=== PATIENT | male | born 1955 | race Caucasian/White ===

== ENCOUNTER → 2020-04-12 14:27 | Outpatient (BNVA) | payer OTHER, SELFPAY | PROVIDERS: PCP Internal Medicine; Visit Provider Emergency Medicine | DX: Z20.828 Contact with and (suspected) exposure to other viral communicable diseases (principal) | CPT/HCPCS: 87635 ==

== ENCOUNTER 2023-12-10 20:17 | Emergency (ER) | payer OTHER, SELFPAY ==
[2023-12-10] VITALS (7 sets, daily range): BP systolic 87–102; BP diastolic 56–67; PULSE 57–76; RESP 17; TEMP 37.7; O2SAT 88–95; BMI 26.9
--- NOTE | 2023-12-10 21:06 | XRR_ITS ---
PROCEDURE INFORMATION: Exam: XR Chest Exam date and time: 12/10/2023 9:29 PM Age: 68 years old Clinical indication: Patient HX: Fever of unknown origin; Hypotension TECHNIQUE: Imaging protocol: Radiologic exam of the chest. Views: 1 view. COMPARISON: No relevant prior studies available. FINDINGS: Lungs: The lungs are clear. No pulmonary consolidation. Pleural spaces: No pleural effusion or pneumothorax. Heart/Mediastinum: Small retrocardiac opacity with central lucency consistent with small hiatal hernia. Heart size is within normal limits. Bones/joints: No acute osseous abnormalities are seen. XR/XR chest 1V portable [id number] IMPRESSION: No acute cardiopulmonary disease.
--- NOTE | 2023-12-10 21:22 | ED_ITS ---
HPI - Fever 2 General: Chief Complaint: Fever Stated Complaint: fever low bp dizzy Time Seen by Provider: 12/10/23 20:46 History of Present Illness: Presents to the ER after 3 days of fever fatigue body aches and dizziness. Patient is also had some diarrhea. Patient's feels the same exact way. Patient has not been able to have a lot of oral intake. Patient did take some ibuprofen which did help his fever. Patient not get sick very often. Patient denies any overt abdominal pain other than body aches. Review of Systems 2 General: Reports: 10 or more systems reviewed and unremarkable except in HPI and below PFSH ED 2 PFSH: Family History Family/Other Hypertension Denies family history of Diabetes Dementia Social History Smoking and tobacco/nicotine status: never used tobacco/nicotine Alcohol intake: never Substance/Drug Use: never Adopted: No Physical Exam 2 Const: COMMON NORMALS: no acute distress, average body habitus, patient oriented x3, no limitations, healthy appearing, alert and well nourished HENMT: COMMON NORMALS: normocephalic, atraumatic, hearing grossly normal bilaterally, external ears normal, Normal external nose present and moist oral mucous membranes HEAD & SCALP: normocephalic and atraumatic NOSE: Normal external nose present EXTERNAL EAR: Yes external ears normal Neck/C-Spine: COMMON NORMALS: no JVD Chest: COMMONS NORMALS: normal inspection of the chest and normal palpation of entire chest wall Resp: COMMON NORMALS: normal respiratory effort, No retractions, No use of accessory muscles and clear to auscultation bilaterally AUSCULTATION: clear to auscultation bilaterally Cardio: COMMON NORMALS: no JVD, regular rate, regular rhythm, S1 normal heart sound present, S2 normal heart sound present, No gallops present (Cardio), No clicks present (Cardio), No murmurs present (Cardio) and No rub (Cardio) R ATE: regular rate RHYTHM: regular rhythm HEART SOUNDS: S1 normal heart sound present and S2 normal heart sound present GI: COMMON NORMALS: Normal to inspection, nondistended, normoactive bowel sounds present, Soft to palpation, non-tender, No hepatosplenomegaly present and no masses PALPATION: Yes Soft to palpation and Yes No hepatosplenomegaly present Neuro: COMMON NORMALS: patient oriented x3 SENSORIUM/ORIENTATION: Yes alert Course 2 Vital Signs: Vital signs: Vital Signs Temperature 99.8 F H 12/10/23 20:26 Pulse Rate 56 L 12/11/23 01:30 Respiratory Rate 17 12/10/23 20:26 Blood Pressure 93/53 12/11/23 01:30 Pulse Oximetry 91 12/11/23 01:30 Oxygen Delivery Me thod Room Air 12/11/23 01:00 MDM - Fever Medical Decision Making Patient was brought in for fever chills nausea vomiting diarrhea. Patient had lab work done there revealed is mildly elevated white count 11.78, mildly elevated creatinine of 1.4, UA that showed possible urinary tract infection. Patient's temperature is 99.8. He was given 1 g of Tylenol, Cipro 500 mg, and bolused 2 L normal saline, given 4 mg Zofran, patient was feeling better patient be discharged home with a prescription of Cipro and Zofran sent to his pharmacy Medical Records I reviewed the patient's medical records. Lab Data I reviewed the patient's lab results. 12/10/23 21:28 12/10/23 21: Radiology Impressions Chest X-Ray 12/10/23 21:06 IMPRESSION: No acute cardiopulmonary disease. Laboratory Results WBC 11.78 10^3/uL (3.29-11.43) H 12/10/23: RBC 4.66 10^6/uL (3.85-5.65) 12/10/23: Hgb 14.80 g/dL (11.27-16.99) 12/10/23: Hct 42.2 % (37-53) 12/10/23: MCV 90.6 fl (82-101) 12/10/23: MCH 31.8 pg (27-33) 12/10/23 21: MCHC 35.1 g/dL (30-55) 12/10/23 21: RDW 11.7 % (12.1-15.1) L 12/10/23 21: Plt Count 240 10^3/cmm (157-399) 12/10/23: MPV 8.8 fL (7.4-10.4) 12/10/23 21: Neut % (Auto) 76.8 % 12/10/23 21: Lymph % (Auto) 13.3 % 12/10/23: [place] % (Auto) 8.7 % 12/10/23 21: Eos % (Auto) 0.6 % 12/10/23: Baso % (Auto) 0.3 % 12/10/23: Neut # (Auto) 9.05 10^3/uL (1.8-7.7) H 12/10/23: Lymph # (Auto) 1.6 10^3/uL (0.8-4.8) 12/10/23: [place] # (Auto) 1.0 10^3/uL (0.2-0.9) H 12/10/23: Eos # (Auto) 0.1 10^3/uL (0.0-0.8) 12/10/23: Baso # (Auto) 0.0 10^3/uL (0.0-0.1) 12/10/23: Nucleated RBC % (auto) 0 % 12/10/23: Nucleated RBCs # 0.0 /100WBC 12/10/23: Sodium 135 mmol/L (136-145) L 12/10/23: Potassium 3.8 mmol/L (3.5-5.1) 12/10/23: Chloride 101 mmol/L (98-107) 12/10/23: Carbon Dioxide 21 mmol/L (22-29) L 12/10/23: Anion Gap 16.8 (5-19) 12/10/23: BUN 23 mg/dL (8-23) 12/10/23: Creatinine 1.4 mg/dL (0.7-1.2) H 12/10/23: GFR Calculation 50.2 mL/min (90-130) L 12/10/23: Glucose 165 mg/dL (65-115) H 12/10/23: Calculated Osmolality 287 mOsm/kg (285-295) 12/10/23: Lactic Acid 1.4 mmol/L (0.5-2.2) 12/10/23 21: Calcium 8.5 mg/dL (8.5-10.5) 12/10/23: Magnesium 2.0 mg/dL (1.7-2.3) 12/10/23 21: Total Bilirubin 0.6 mg/dL (0.15-1.2) 12/10/23 21: AST 13 U/L (0-40) 12/10/23: ALT 10 U/L (0-41) 12/10/23 21: Alkaline Phosphatase 67 U/L (40-130) 12/10/23 21: Total Protein 7.7 g/dL (6.6-8.7) 12/10/23: Albumin 3.7 g/dL (3.5-5.2) 12/10/23: Globulin 4.0 g/dL (1.3-4.6) 12/10/23: Urine Color Yellow (Yellow) 12/10/23 22:54 Urine Appearance Cloudy (CLEAR) A 12/10/23 22:54 Urine pH 5 (5-7) 12/10/23 22:54 Ur Specific [place] 1.025 (1.005-1.030) 12/10/23 22:54 Urine Protein 1+ (Negative) H 12/10/23 22:54 Urine Glucose (UA) Norm (Normal) 12/10/23 22:54 Urine Ketones 1+ (Negative) H 12/10/23 22:54 Urine Blood 3+ (Negative) H 12/10/23 22:54 Urine Nitrate Negative (Negative) 12/10/23 22:54 Urine Bilirubin 1+ (Negative) H 12/10/23 22:54 Urine Urobilinogen 4 mg/dL (Negative) H 12/10/23 22:54 Ur Leukocyte Esterase Trace (Negative) H 12/10/23 22:54 Urine RBC 5-10 /hpf (0-2) H 12/10/23 22:54 Urine WBC 5-10 /hpf (0-5) H 12/10/23 22:54 Ur Squamous Epith Cells 0-4 /hpf (0-5) H 12/10/23 22:54 Amorphous Sediment 1+ /hpf 12/10/23 22:54 Urine Bacteria 1+ /hpf (NONE) H 12/10/23 22:54 Hyaline Casts 5-10 /lpf H 12/10/23 22:54 Coarse Granular Casts 0-4 /lpf H 12/10/23 22:54 Urine Mucus 2+ /hpf 12/10/23 22:54 Influenza Type A Ag negative (Negative) 12/10/23 22:08 Influenza Type B Ag negative (Negative) 12/10/23 22:08 SARS-CoV-2 Ag (Rapid) negative (Negative) 12/10/23 22:08 All radiology interpretation(s) finalized by discharge Discharge Plan Discharge Patient Disposition: Home Clinical Impression: Gastroenteritis Urinary tract infection Qualifiers: Urinary tract infection type: acute cystitis Hematuria presence: with hematuria Qualified Code(s): N30.01 - Acute cystitis with hematuria Condition: Stable Prescriptions: New ondansetron HCl 4 mg tablet 4 mg PO Q8H PRN (Reason: nausea and vomiting) Qty: 14 0RF ciprofloxacin HCl 500 mg tablet 500 mg PO Q12H Qty: 20 0RF No Action lisinopril 10 mg tablet 10 mg PO DAILY Discharge Orders: Discharge ED (Routine); Ordered 12/11/23 Ordered By: Tigre Carlos Referrals: Dru Romero MD [Primary Care Provider] - 1 week Patient Instructions: Urinary Tract Infection in Men (ED), Gastroenteritis (ED) Activity Restrictions/Additional Instructions: Please take all your medicine as directed. Please push plenty of clear fluids. Follow-up with your family practice physician within the next 7 to 10 days for further evaluation and treatment as needed. Thank you for choosing [facility] for your healthcare needs today. Please realize that you were seen in the emergency department and that we are providing you with an emergency medical screening exam and this may not be a complete and all exclusive of all testing and/or medical workup we may need to determine your element or severity of your illness. It is very important that you follow-up as instructed with your primary care provider or specialist for the additional evaluation and to discuss your medical treatment plan. You may return to the emergency department should you have concerns or if your condition changes or worsens in any way. Coding Level of Care Code ED Assistant Production Manager for Shanna Espinoza
[2023-12-10 21:45] LABS: Basophils % 0.3 %; Eosinophils # 0.1 10^3/uL (0.0-0.8); Eosinophils % 0.6 %; Hematocrit 42.2 % (37-53); Lymphocytes # 1.6 10^3/uL (0.8-4.8); Lymphocytes % 13.3 %; Mean Corpuscular HGB Conc 35.1 g/dL (30-55); Mean Corpuscular Hemoglobin 31.8 pg (27-33); Mean Corpuscular Volume 90.6 fl (82-101); Mean Platelet Volume 8.8 fL (7.4-10.4); Monocytes % 8.7 %; Neutrophils # 9.05 10^3/uL (1.8-7.7); Neutrophils % 76.8 %; Nucleated Red Blood Cells % 0 %; Platelet Count 240 10^3/cmm (157-399); Red Blood Count 4.66 10^6/uL (3.85-5.65); Red Cell Distribution Width 11.7 % (12.1-15.1); White Blood Count 11.78 10^3/uL (3.29-11.43)
[2023-12-10] MEDS: ondansetron 2 mg/ML SDV 2 mL 4 MG IVP (22:00)
[2023-12-10] MEDS: acetaminophen 500 mg Tablet 1000 MG PO (22:00)
[2023-12-10] MEDS: sodium chloride 0.9% 1,000 ML 999 ML IV ×2 (22:01→23:40)
[2023-12-10 22:02] LABS: Alanine Aminotransferase 10 U/L (0-41); Albumin Level 3.7 g/dL (3.5-5.2); Alkaline Phosphatase 67 U/L (40-130); Anion Gap 16.8 (5-19); Aspartate Amino Transferase 13 U/L (0-40); Blood Urea Nitrogen 23 mg/dL (8-23); Calcium 8.5 mg/dL (8.5-10.5); Carbon Dioxide 21 mmol/L (22-29); Chloride 101 mmol/L (98-107); Creatinine Clr Calc Pharmacy 61.5767; Glomerular Filtration Rate 50.2 mL/min (90-130); Glucose 165 mg/dL (65-115); Osmolality Calculated 287 mOsm/kg (285-295); Potassium 3.8 mmol/L (3.5-5.1); Sodium 135 mmol/L (136-145); Total Bilirubin 0.6 mg/dL (0.15-1.2); Total Protein 7.7 g/dL (6.6-8.7)
[2023-12-10 22:34] LABS: Influenza A by IFA negative (Negative); Influenza B by IFA negative (Negative); SARS Covid-2 Antigen negative (Negative)
[2023-12-10 23:17] LABS: Add Urine Microscopic? YES; Bilirubin Urine 1+ (Negative); Blood Urine 3+ (Negative); Glucose Urine UA Norm (Normal); Ketones Urine 1+ (Negative); Leukocyte Esterase Urine Trace (Negative); Nitrate Urine Negative (Negative); Protein Urine 1+ (Negative); Specific Gravity, Urine 1.025 (1.005-1.030); Urine Appearance Cloudy (CLEAR); Urine Color Yellow (Yellow); Urobilinogen Urine 4 mg/dL (Negative); pH Urine 5 (5-7)
[2023-12-10 23:18] LABS: Add Urine Culture? Yes; Amorphous Sediment Urine 1+ /hpf; Bacteria Urine 1+ /hpf; Coarse Granular Casts Urine 0-4 /lpf; Mucus Urine 2+ /hpf; Squamous Epithelial Cell Urine 0-4 /hpf (0-5)
[2023-12-10] MEDS: ciprofloxacin 500 mg Tablet PO (23:40)
[2023-12-10 23:53] LABS: Lactic Sepsis W/Reflex 1.4 mmol/L (0.5-2.2)
[2023-12-11 00:45] VITALS: BP 85/56; PULSE 57
[2023-12-11 00:47] VITALS: BP 85/56; BP 96/69; BP 98/57; PULSE 57; PULSE 58; PULSE 66
[2023-12-11 01:00] VITALS: BP 96/57; PULSE 58; O2SAT 88
[2023-12-11 01:30] VITALS: BP 93/53; PULSE 56; O2SAT 91
[2023-12-11 02:00] VITALS: BP 92/55; PULSE 55; O2SAT 92
--- NOTE | 2023-12-11 02:12 | PC.NURSE ---
PT PLACED ON 2L NC DUE TO SPO2 DROPPING INTO MID 80'S WHILE SLEEPING. PT DENIES WEARING CPAP WHEN SLEEPING. SLEEP STUDY WAS RECOMMENDED TO PT.
[2023-12-11 02:30] VITALS: BP 101/61; PULSE 50; O2SAT 95
== END 2023-12-11 02:42 | disposition home or self-care (01) ==
PROVIDERS: Emergency Provider Emergency Medicine; PCP Family Medicine
DX: K52.9 Noninfective gastroenteritis and colitis, unspecified (principal); N30.01 Acute cystitis with hematuria; Z11.52 Encounter for screening for COVID-19
CPT/HCPCS: 71045; 80053; 81001; 83605; 83735; 85025; 87086; 87426; 87804; 96361; 96374; 99284; J2405; J7030